=== PATIENT | male | born 1995 | race Hispanic/Latino ===

== ENCOUNTER 2017-08-17 23:00 | Emergency (ER) | payer OTHER, SELFPAY ==
[2017-08-17] MEDS ORDERED: predniSONE 20 MG TAB ONE (23:25)
[2017-08-17] MEDS ORDERED: Albuterol Sulfate 2.5 mg/0.5 ml Neb ONE ×2 (23:32→23:34)
--- NOTE | 2017-08-18 07:19 | RAD ---
RADIOGRAPH CHEST 2 VIEWS: HISTORY: 22-year-old male with dyspnea and cough. FINDINGS: There is no air space density, pulmonary edema, pleural effusion, pneumothorax, or cardiomegaly. IMPRESSION: No acute cardiopulmonary findings. jn [] POS: [facility]
== END 2017-08-18 00:07 | disposition home or self-care (01) ==
LOC: SCSER 23:00
DX: J20.9 Acute bronchitis, unspecified (principal); J45.909 Unspecified asthma, uncomplicated
CPT/HCPCS: 71046; J7506; J7611